=== PATIENT | female | born 1975 | race Hispanic/Latino ===

== ENCOUNTER 2021-11-28 10:59 | Day surgery (SDC) | payer BC ==
[2021-11-26 16:53] LABS: EOSINOPHILS % (AUTO) 1.7 % (0.0-8.0); HEMATOCRIT 35.5 % (36-48); LYMPHOCYTES % (AUTO) 34.5 % (21.0-51.0); MEAN CORPUSCULAR HEMOGLOBIN 29.4 pg (27.0-33.0); MEAN CORPUSCULAR HGB CONC 33.5 g/dL (32.0-36.0); MEAN CORPUSCULAR VOLUME 87.7 fL (79-99); MONOCYTES % (AUTO) 6.2 % (3.0-13.0); NEUTROPHILS % (AUTO) 56.3 % (40.0-77.0); PLATELET COUNT (AUTO) 197 K/uL (130-400); RED BLOOD CELL COUNT(AUTO) 4.05 MIL/uL (4.00-5.50); RED CELL DISTRIBUTION WIDTH 11.8 % (11.0-15.5); WHITE BLOOD COUNT (AUTO) 5.9 K/uL (4.8-10.8)
[2021-11-27 10:11] VITALS: BP 105/62
[~2021-11-28] VITALS: Ht 167.6 cm; Wt 78.5 kg
[~2021-11-28 10:59] MED LIST: CEFAZOLIN SODIUM 1 GM VIAL IVP ONE; LACTATED RINGERS 1000ML 1,000 ML IV SCH; LEVO75CA5 PO
[2021-11-28] MEDS ORDERED: GLYCOPYRROLATE 1 MG/5 ML SYRINGE ONE (11:31)
[2021-11-28] MEDS ORDERED: ROCURONIUM 10MG/1ML SYR 10 MG/ML ML ONE (11:31)
[2021-11-28] MEDS ORDERED: SUCCINYLCHOLINE CHLORIDE 20 MG/ML 10 ML VIAL ONE ×2 (11:31→11:35)
[2021-11-28] MEDS ORDERED: NEOSTIGMINE 5MG/5ML SYR IV ONE (11:31)
[2021-11-28] MEDS ORDERED: DEXAMETHASONE SOD PHOSPHATE 10MG/ML 1ML VIAL ONE (11:31)
[2021-11-28] MEDS ORDERED: LIDOCAINE PF 100MG/5ML (2%) SYRINGE 5ML ONE (11:31)
[2021-11-28] MEDS ORDERED: ONDANSETRON 4MG INJ ONE (11:32)
[2021-11-28] MEDS ORDERED: MIDAZOLAM HCL 1 MG/ML 2ML VIAL ONE (11:32)
[2021-11-28] MEDS ORDERED: PROPOFOL 10 MG/ML 20ML VIAL IV ONE (11:32)
[2021-11-28] MEDS ORDERED: FENTANYL CITRATE PF 50 MCG/1 ML 2ML VIAL ONE (11:32)
[2021-11-28] MEDS ORDERED: CEFAZOLIN SODIUM 1 GM VIAL ONE (11:52)
[2021-11-28] MEDS ORDERED: CEFAZOLIN SODIUM 2 GM VIAL IV ONE (12:15)
[2021-11-28] MEDS ORDERED: OXYTOCIN 10 USP UNITS/ML ONE (12:38)
[2021-11-28 13:35] VITALS: BP 107/66
[2021-11-28 13:50] VITALS: BP 110/66
[2021-11-28 14:05] VITALS: BP 111/66
== END 2021-11-28 14:05 | disposition home or self-care (01) ==
LOC: DAH 10:59
PROVIDERS: ATTEND Obstetrics & Gynecology
DX: O02.1 Missed abortion (principal); Z79.890 Hormone replacement therapy
CPT/HCPCS: 36415; 59820; 85025; 86850; 86900; 86901; 87635; A4215; A4221; A4222; A4223; A4351; A4663; A6260; C9803; J0330 ×2; J0690 ×2; J1100; J2001; J2250; J2405; J2590; J2704; J2710; J3010; J3490; J7030